=== PATIENT | female | born 2000 | race Caucasian/White ===

== ENCOUNTER 2021-01-19 14:05 | Outpatient (CLI) | payer MEDICAID ==
[2021-01-19 14:36] VITALS: BP 126/73
== END 2021-01-19 16:10 | disposition home or self-care (01) ==
LOC: TRG 14:05 → APU 14:07 → TRG 16:10
PROVIDERS: ATTEND Obstetrics & Gynecology
DX: Z34.93 Encounter for supervision of normal pregnancy, unspecified, third trimester (principal); Z3A.39 39 weeks gestation of pregnancy
CPT/HCPCS: 59025